=== PATIENT | female | born 1970 | race Caucasian/White ===

== ENCOUNTER 2018-10-10 16:23 | Emergency (ER) | payer OTHER | END 2018-10-10 17:25 | disposition home or self-care (01) | LOC: JER 16:23 → JERFT 17:25 ==

== ENCOUNTER 2021-07-12 14:26 | Emergency (ER) | payer OTHER ==
[2021-07-12 14:31] VITALS: BP 120/77; PULSE 85; TEMP 99.2; BMI 23.6
[2021-07-12] MEDS ORDERED: LIDOCAINE 5% TOPICAL PATCH TP ONE (15:30)
[2021-07-12] MEDS ORDERED: KETOROLAC TROMETHAMINE 15 MG/ML VIAL IM ONE (15:31)
[2021-07-12] MEDS ORDERED: KETOROLAC TROMETHAMINE 30 MG/1 ML VIAL ONE (15:32)
[2021-07-12] MEDS ORDERED: LIDOCAINE 5% TOPICAL PATCH ONE (15:32)
[2021-07-12] MEDS ORDERED: KETOROLAC TROMETHAMINE 30 MG/1 ML VIAL IM ONE (15:32)
[2021-07-12] MEDS ORDERED: LIDOCAINE PATCH REMOVAL MC SCH (22:00)
== END 2021-07-12 17:29 | disposition home or self-care (01) ==
LOC: JERFT 14:26
PROC: 3E0234Z Introduction of Serum, Toxoid and Vaccine into Muscle, Percutaneous Approach (ICD-10-PCS; principal; 2021-07-12)
DX: S33.5XXA Sprain of ligaments of lumbar spine, initial encounter (principal); X50.0XXA Overexertion from strenuous movement or load, initial encounter
CPT/HCPCS: 72131-TC; 99284-25